=== PATIENT | female | born 1940 | race Caucasian/White ===

== ENCOUNTER 2023-03-11 11:50 | Emergency (ER) | payer OTHER ==
[~2023-03-11] VITALS: Ht 147.3 cm; Wt 59.0 kg
[2023-03-11] MEDS ORDERED: IBUPROFEN 600 MG TABLET PO ONE (13:00)
[2023-03-11] MEDS ORDERED: IBUPROFEN 600 MG TABLET ONE (13:10)
[2023-03-11] MEDS ORDERED: IBUP-1955 PO (13:48)
[2023-03-11] MEDS ORDERED: BENZ-13 PO (13:48)
[2023-03-11 15:06] VITALS: BP 122/66; TEMP 98.1; O2SAT 100
== END 2023-03-11 15:06 | disposition home or self-care (01) ==
LOC: ER 12:05
DX: J06.9 Acute upper respiratory infection, unspecified (principal); R05.9 Cough, unspecified; R09.81 Nasal congestion; R51.9 Headache, unspecified; I10 Essential (primary) hypertension; E11.9 Type 2 diabetes mellitus without complications; Z20.822 Contact with and (suspected) exposure to COVID-19; Z60.2 Problems related to living alone